=== PATIENT | female | born 1975 | race Caucasian/White ===

== ENCOUNTER 2016-12-03 10:58 | Emergency (ER) | payer OTHER ==
[~2016-12-03] VITALS: Wt 56.5 kg
[~2016-12-03 10:58] MED LIST: GLUC100015 PO; MULT-236 PO
[2016-12-03] MEDS ORDERED: SOD CHLORIDE 0.9% 1,000 ML IV STA (12:02)
[2016-12-03] MEDS: morphine 4 MG/ML VIAL IV STA ×2 (12:27→12:32)
[2016-12-03] MEDS: ONDANSETRON 4 MG INJ IV STA ×2 (12:27→12:32)
[2016-12-03 13:01] LABS: BASOPHILS % 0.7 % (0.0-2.0); EOSINOPHILS # 0.1 10^3/ul (0.0-0.5); EOSINOPHILS % 1.7 % (0.0-7.0); HEMATOCRIT 44.2 % (37.0-47.0); HEMOGLOBIN 15.1 g/dl (12.0-16.0); LYMPHOCYTES % 26.8 % (15.0-51.0); MEAN CORPUSCULAR HEMOGLOBIN 32.4 pg (29.0-33.0); MEAN CORPUSCULAR HGB CONC 34.1 g/dl (32.0-37.0); MEAN CORPUSCULAR VOLUME 94.9 fl (82.0-101.0); MEAN PLATELET VOLUME 9.1 fl (7.4-10.4); MONOCYTE # 0.4 10^3/ul (0.3-0.9); MONOCYTES % 11.3 % (0.0-11.0); NEUTROPHIL # 2.3 10^3/ul (1.6-7.5); NEUTROPHILS % 59.5 % (39.0-77.0); PLATELET COUNT 195 10^3/UL (140-440); RED BLOOD COUNT 4.66 10^6/ul (4.20-5.40); RED CELL DISTRIBUTION WIDTH 12.3 % (11.5-14.5); UNCORRECTED WBC 3.9 10^3/ul (4.8-10.8); WHITE BLOOD COUNT 3.9 10^3/ul (4.8-10.8)
[2016-12-03 13:02] LABS: ALBUMIN 4.6 g/dl (3.3-4.9); CONDITION 1
[2016-12-03 13:05] LABS: ALBUMIN/GLOBULIN RATIO 1.27; BILIRUBIN,INDIRECT 0.3 mg/dl (0-1.1); BILIRUBIN,TOTAL 0.3 mg/dl (0.2-1.3); CREATININE 0.58 mg/dl (0.44-1.00); TOTAL PROTEIN 8.2 g/dl (6.1-8.1)
[2016-12-03 13:06] LABS: CALCIUM 9.3 mg/dl (8.4-10.2)
[2016-12-03 13:10] LABS: ADD UMIC YES; URINE BILIRUBIN (Dip) NEGATIVE (NEGATIVE); URINE BLOOD (Dip) TRACE (NEGATIVE); URINE COLOR LT. YELLOW (YELLOW); URINE GLUCOSE (Dip) NEGATIVE (NEGATIVE); URINE KETONES (Dip) NEGATIVE (NEGATIVE); URINE LEUKOCYTE ESTERASE (Dip) NEGATIVE (NEGATIVE); URINE NITRITE (Dip) NEGATIVE (NEGATIVE); URINE TOTAL PROTEIN (Dip) NEGATIVE (NEGATIVE); URINE UROBILINOGEN (Dip) 0.2 E.U./dL (0.1-1.0)
--- NOTE | 2016-12-03 13:14 | RADRPT ---
PROCEDURE: CT Abdomen and Pelvis without contrast CLINICAL INDICATION: Abdominal pain TECHNIQUE: Transaxial images were obtained through the abdomen and pelvis on a multi-slice scanner without the intravenous contrast administration. No oral contrast had previously been given. Sagit kris and coronal re-formations were subsequently reconstructed. One or more of the following dose reduction techniques were used: - Automated exposure control. - Adjustment of the mA and/or kV according to patient size. - Use of iterative reconstruction technique. Radiation dose: CTDIvol = 5.66 mGy; DLP = 319.1 a mGy-cm. COMPARISON: No prior studies are available for comparison. FINDINGS: Lung bases: The visualized lung bases appear unremarkable. Liver: Normal in size and in attenuation. There is no focal lesion. Gallbladder: The wall is not thickened. No radiopaque stones are identified. Bile ducts: The intra and extrahepatic bile ducts are normal in caliber. Pancreas: Appears normal with no mass or inflammation evident. Spleen: Normal in size with no focal lesion. Adrenals: Normal with no mass identified. Kidneys, ureters and bladder: The kidneys are normal in size and there is no mass, pathological calc ification, or hydronephrosis evident. There is no perinephric stranding. The ureters are normal in c aliber and no ureteroliths are identified. The bladder appears unremarkable. Phleboliths are seen in the pelvis. Reproductive organs: Unremarkable. Stomach and bowel: The bowel appears unremarkable with no evidence of bowel obstruction or inflammat ion. The stomach appears unremarkable. Appendix: A normal-appearing vermiform appendix is evident. Peritoneum: No free intraperitoneal fluid or air is identified. Aorta: Normal in caliber with no aneurysmal dilatation. IVC: Unremarkable. Lymph nodes: No pathologically enlarged nodes are identified. Osseous structures: The osseous elements appear intact. IMPRESSION: Unremarkable CT scan of the abdomen and pelvis without contrast. Physician Dinesh Date Time Electronically viewed and signed by Physician Dinesh on 12/03/2016 13:14 /
--- NOTE | 2016-12-03 13:19 | RADRPT ---
PROCEDURE: US Pelvis Non-OB CLINICAL INDICATION: Pelvic pain TECHNIQUE: Images were taken during real time trans pelvic and endovaginal interrogation. Color-fl ow and Doppler interrogation of the ovaries was performed. COMPARISON: None FINDINGS: Uterus: appears mildly prominent in size measuring measuring 10.0 cm in sagittal diameter and 6.0 x 5.9 cm in cross diameter. The endometrial stripe measures 1.5 cm in total AP diameter small Nabothi an cysts are seen within the cervix. Ovaries: The right ovary measures 1-0.7 x 2.1 x 1.6 cm and appears unremarkable. The left ovary measures 2.6 x 1.9 x 1.7 cm and appears unremarkable. Each ovary demonstrates vascular flow on Doppler. Adnexa: No adnexal mass is identified. Free intraperitoneal fluid: None visualized. IMPRESSION: 1. Mildly prominent and the uterus with a thickened endometrial stripe measuring 1.5 cm in total AP diameter. A few small Nabothian cysts are seen in the cervix. 2. Normal ovaries with vascular flow demonstrated in each. 3. No adnexal mass or free fluid is identified. Physician Dinesh Date Time Electronically viewed and signed by Physician Dinesh on 12/03/2016 13:18 /
[2016-12-03 13:33] LABS: URINE RBCS 0-2 /HPF (0)
[2016-12-03] MEDS ORDERED: ACET500C5 PO (13:45)
[2016-12-03 14:03] VITALS: BP 109/69; PULSE 78; RESP 18
--- NOTE | 2016-12-03 14:04 | ERD ---
ER Documentation Chief Complaint Date/Time DATE: 12/03/16 TIME: 14:00 Chief Complaint LEFT LOWER ABD PAIN, ONSET THIS AM, NO N/V/D HPI Patient is a 41-year-old female who presents to the ED with left lower quadrant pain and left pelvic pain since yesterday. She states that the pain came on suddenly, comes and goes and has not been constant. She denies fever or chills. She denies radiation of pain. She denies nausea, vomiting or diarrhea. She states that her last bowel movement was this morning. She also complains of dysuria. No urgency or frequency or hematuria. No bloody stools or black tarry stools. No headache or dizziness. No leg pain or swelling. No chest pain, shortness of breath or difficulty breathing. ROS All systems reviewed and are negative except as per history of present illness. Medications Home Meds Active Scripts Acetaminophen* (Tylophen*) 500 Mg Capsule, 1 CAP PO Q6H Y for PAIN AND OR ELEVATED TEMP, #20 CAP Prov:SCOTT LUTZ PA-C 12/03/16 Reported Medications Glucosamine Sulfate 2KCL (GLUCOSAMINE) 1,000 Mg Tablet, 1000 MG PO DAILY 04/22/14 Multivitamins (Multi-Day Vitamin) 1 Tab Tablet, 1 TAB PO DAILY 04/22/14 Allergies Allergies: Coded Allergies: No Known Drug Allergy (Verified Allergy, Unknown, 03/26/12) PMhx/Soc Medical and Surgical Hx: pt denies Medical Hx History of Surgery: Yes (2009 excicion mass right breast) Anesthesia Reaction: No Hx Neurological Disorder: No Hx Respiratory Disorders: No Hx Cardiac Disorders: No Hx Psychiatric Problems: No Hx Miscellaneous Medical Probl: No Hx Alcohol Use: No Hx Substance Use: No Hx Tobacco Use: No Smoking Status: Never smoker FmHx Family History: No coronary disease, No diabetes, No other Physical Exam Vitals Vital Signs Date Time Temp Pulse Resp B/P Pulse Ox O2 Delivery O2 Flow Rate FiO2 12/03/16 14:03 18 98 Room Air 12/03/16 11:08 96.8 61 17 101/63 97 Physical Exam GENERAL: Well-developed, well-nourished female. Appears in no acute distress. HEAD: Normocephalic, atraumatic. EYES: Pupils are equally reactive bilaterally. EOMs grossly intact. No conjunctival erythema. ENT: Moist mucous membranes. No uvula deviation. No kissing tonsils. No exudates. NECK: Supple. No lymphadenopathy or thyromegaly. No meningismus. negative kernig. negative brudinski. LUNG: Clear to auscultation bilaterally. No rhonchi, wheezing, rales or coarse breath sounds. HEART: Regular rate and rhythm. No murmurs, rubs or gallops. ABDOMEN: No scars, ecchymosis or rashes noted. Soft, and nondistended. Positive bowel sounds in all four quadrants. No rebound tenderness, no guarding. (-) McBurneys point tenderness. No CVA tenderness. tender in llq and tender in left pelvic. SKIN: Normal color. Warm and dry. No rashes or lesions. Capillary refill < 2 seconds Result Diagram: 12/03/16 1200 12/03/16 1200 Results 24 hrs Laboratory Tests Test 12/03/16 12:00 12/03/16 12:10 Alanine Aminotransferase (ALT/SGPT) 18IU/L Albumin 4.6g/dl Albumin/Globulin Ratio 1.27 Alkaline Phosphatase 62IU/L Anion Gap 16 Aspartate Amino Transf (AST/SGOT) 23IU/L Basophils # 0.010^3/ul Basophils % 0.7% Blood Urea Nitrogen 11mg/dl Calcium Level 9.3mg/dl Carbon Dioxide Level 27mmol/L Chloride Level 102mmol/L Creatinine 0.58mg/dl Direct Bilirubin 0.00mg/dl Eosinophils # 0.110^3/ul Eosinophils % 1.7% Globulin 3.60g/dl Glucose Level 85mg/dl Hematocrit 44.2% Hemoglobin 15.1g/dl Indirect Bilirubin 0.3mg/dl Lipase 59U/L Lymphocytes # 1.010^3/ul Lymphocytes % 26.8% Mean Corpuscular Hemoglobin 32.4pg Mean Corpuscular Hemoglobin Concent 34.1g/dl Mean Corpuscular Volume 94.9fl Mean Platelet Volume 9.1fl Monocytes # 0.410^3/ul Monocytes % 11.3% Neutrophils # 2.310^3/ul Neutrophils % 59.5% Nucleated Red Blood Cells # 0.010^3/ul Nucleated Red Blood Cells % 0.0/100WBC Platelet Count 54685^3/UL Potassium Level 4.0mmol/L Red Blood Count 4.6610^6/ul Red Cell Distribution Width 12.3% Sodium Level 141mmol/L Total Bilirubin 0.3mg/dl Total Protein 8.2g/dl White Blood Count 3.910^3/ul Urine Bilirubin NEGATIVE Urine Clarity CLEAR Urine Color LT. YELLOW Urine Epithelial Cells FEW Urine Glucose NEGATIVE% Urine Hemoglobin TRACE Urine Ketones NEGATIVE Urine Leukocyte Esterase NEGATIVE Urine Microscopic RBC 0-2/HPF Urine Microscopic WBC 2-5/HPF Urine Nitrite NEGATIVE Urine Specific Ponder <=1.005 Urine Total Protein NEGATIVE Urine Urobilinogen 0.2 E.U./dL Urine pH 5.5 Current Medications Medications (Trade) Dose Ordered Sig/Jaida Route PRN Reason Start Time Stop Time Status Last Admin Dose Admin Sodium Chloride (NS) 1,000 ml @ 1,000 mls/hr Q1H STAT IV 12/03/16 12:02 12/03/16 13:01 DC 12/03/16 12:28 Morphine Sulfate (morphine) 4 mg ONCE STAT IV 12/03/16 12:02 12/03/16 12:05 DC Ondansetron HCl (Zofran Inj) 4 mg ONCE STAT IV 12/03/16 12:02 12/03/16 12:05 DC Procedures/MDM ER COURSE: I kept the patient and/or family informed of laboratory and diagnostic imaging results throughout the emergency room course. EKG, MONITORS, & DIAGNOSTIC IMAGING: [place] [id number] Radiology Main Line: [phone] DIAGNOSTIC IMAGING REPORT Patient: SABINA LION : 1975 Age: 41 Sex: F MR #: [id number] DOS: 12/03/16 1202 Ordering MD: SCOTT LUTZ PA-C Location: [facility] Room/Bed: PROCEDURE: CT Abdomen and Pelvis without contrast CLINICAL INDICATION: Abdominal pain TECHNIQUE: Transaxial images were obtained through the abdomen and pelvis on a multi-slice scanner without the intravenous contrast administration. No oral contrast had previously been given. Sagittal and coronal re-formations were subsequently reconstructed. One or more of the following dose reduction techniques were used: - Automated exposure control. - Adjustment of the mA and/or kV according to patient size. - Use of iterative reconstruction technique. Radiation dose: CTDIvol = 5.66 mGy; DLP = 319.1 a mGy-cm. COMPARISON: No prior studies are available for comparison. FINDINGS: Lung bases: The visualized lung bases appear unremarkable. Liver: Normal in size and in attenuation. There is no focal lesion. Gallbladder: The wall is not thickened. No radiopaque stones are identified. Bile ducts: The intra and extrahepatic bile ducts are normal in caliber. Pancreas: Appears normal with no mass or inflammation evident. Spleen: Normal in size with no focal lesion. Adrenals: Normal with no mass identified. Kidneys, ureters and bladder: The kidneys are normal in size and there is no mass, pathological calcification, or hydronephrosis evident. There is no perinephric stranding. The ureters are normal in caliber and no ureteroliths are identified. The bladder appears unremarkable. Phleboliths are seen in the pelvis. Reproductive organs: Unremarkable. Stomach and bowel: The bowel appears unremarkable with no evidence of bowel obstruction or inflammation. The stomach appears unremarkable. Appendix: A normal-appearing vermiform appendix is evident. Peritoneum: No free intraperitoneal fluid or air is identified. Aorta: Normal in caliber with no aneurysmal dilatation. IVC: Unremarkable. Lymph nodes: No pathologically enlarged nodes are identified. Osseous structures: The osseous elements appear intact. IMPRESSION: Unremarkable CT scan of the abdomen and pelvis without contrast. Physician Dinesh Date Time Electronically viewed and signed by Physician Dinesh on 12/03/2016 13:14 RH/ CC: SCOTT LUTZ PA-C [place] [address] Radiology Main Line: [phone] DIAGNOSTIC IMAGING REPORT Patient: SABINA LION : 1975 Age: 41 Sex: F MR #: [id number] DOS: 12/03/16 0000 Ordering MD: SCOTT LUTZ PA-C Location: [facility] Room/Bed: PROCEDURE: US Pelvis Non-OB CLINICAL INDICATION: Pelvic pain TECHNIQUE: Images were taken during real time trans pelvic and endovaginal interrogation. Color-flow and Doppler interrogation of the ovaries was performed. COMPARISON: None FINDINGS: Uterus: appears mildly prominent in size measuring measuring 10.0 cm in sagittal diameter and 6.0 x 5.9 cm in cross diameter. The endometrial stripe measures 1.5 cm in total AP diameter small Nabothian cysts are seen within the cervix. Ovaries: The right ovary measures 1-0.7 x 2.1 x 1.6 cm and appears unremarkable. The left ovary measures 2.6 x 1.9 x 1.7 cm and appears unremarkable. Each ovary demonstrates vascular flow on Doppler. Adnexa: No adnexal mass is identified. Free intraperitoneal fluid: None visualized. IMPRESSION: 1. Mildly prominent and the uterus with a thickened endometrial stripe measuring 1.5 cm in total AP diameter. A few small Nabothian cysts are seen in the cervix. 2. Normal ovaries with vascular flow demonstrated in each. 3. No adnexal mass or free fluid is identified. Physician Dinesh Date Time Electronically viewed and signed by Physician Dinesh on 12/03/2016 13:18 RH/ CC: SCOTT LUTZ PA-C MEDICATIONS: IV fluids, morphine, Zofran. Told medication well with no adverse reaction. Seen improvement in symptoms. LAB INTERPRETATION: CBC showed no evidence of systemic infection or severe anemia. CMP showed no evidence of electrolyte abnormalities, severe acidosis, alkalosis, renal failure , or liver disease. Lipase showed no evidence of acute pancreatitis. UA showed no evidence of leukocytes, nitrites or hematuria. Urine test was negative. MEDICAL DECISION MAKING: This is a 41-year-old female who presents with abdominal pain x 1 day. Vital signs were reviewed. Patient is afebrile. Patient is not hypoxic. Patient is not toxic or ill-appearing. Patient has abdominal pain of unknown etiology. Low suspicion for ACS, AAA, perforated ulcer, bowel obstruction, cholecystitis, choledocholithiasis, cholangitis, pancreatitis, hepatic abscess, appendicitis, diverticulitis, gastroenteritis, hepatitis, peptic ulcer disease, HELLP syndrome. Patient is feeling much better after medication and treatment in the ED. With no complaints. DISCHARGE: At this time, patient is stable for discharge and outpatient management with no new complaints during the ER course. Patient was sent home with Tylenol and to follow-up with her energy trader regarding her ultrasound results and her primary care doctor. Labs and imaging study reports given to patient.. Patient will be discharged home with instructions to recheck for new or worsening symptoms such as fever, nausea, weakness, LOC and to follow up with primary care in the next 1-2 days. Patient was advised to return to the ER for any new or worsening symptoms. Plan was discussed and patient and/or family understands and agrees. Home instructions were given. Departure Diagnosis: Primary Impression: Abdominal pain Abdominal location: left lower quadrant Qualified Code: R10.32 - Left lower quadrant pain Condition: Stable Patient Instructions: Abdominal Pain Referrals: AMPARO NANCE (PCP) Additional Instructions: Call your primary care doctor TOMORROW for an appointment during the next 1-2 days.See the doctor sooner or return here if your condition worsens before your appointment time. SCOTT LUTZ PA-C Dec 03, 2016 14:04
== END 2016-12-03 14:28 | disposition home or self-care (01) ==
LOC: FTE 10:58
DX: R10.32 Left lower quadrant pain (principal)
CPT/HCPCS: 36415; 74176; 76830; 76856; 80053; 81001; 83690; 85025; J2405; J7030; Z7502; 81003; J2270

== ENCOUNTER 2017-06-25 20:22 | Emergency (ER) | payer OTHER ==
[~2017-06-25] VITALS: Ht 162.6 cm; Wt 52.5 kg
[2017-06-25 20:58] VITALS: Ht 162.6 cm; Wt 52.5 kg
--- NOTE | 2017-06-25 22:55 | ERD ---
ER Documentation Chief Complaint Date/Time DATE: 06/25/17 TIME: 22:52 Chief Complaint C/O NECK PAIN, LT SD HEAD PRESSURE THAT STARTED TODAY. HPI 41-year-old female department for complaints of neck pain and pain in the left side of the head radiating to the left orbital area that started today. She is complaining of neck and pelvic pain succession scale, as was upon movement. Patient has history of degenerative disc disease of the cervical spine, was recommended to have physical therapy which she has not done, patient took ibuprofen for pain with much relief. Patient also complains of muscle spasms of affected area. Presents complaining of left-sided headache, throbbing pain, 6/10 scale, radiates to the left back of the head to the left facial area. Patient denies any numbness or tingling. Patient denies any nausea vomiting. Patient denies any head injury or neck injury. ROS All systems reviewed and are negative except as per history of present illness. Medications Home Meds Active Scripts Amoxicillin* (Amoxicillin*) 500 Mg Cap, 500 MG PO TID for 7 Days, CAP Prov:EUSEBIO CROCKER NP 06/25/17 Ibuprofen* (Motrin*) 600 Mg Tab, 600 MG PO Q6H Y for PAIN AND OR ELEVATED TEMP, #30 TAB Prov:EUSEBIO CROCKER NP 06/25/17 Cyclobenzaprine Hcl* (Cyclobenzaprine Hcl*) 10 Mg Tablet, 10 MG PO TID, #15 TAB Prov:EUSEBIO CROCKER NP 06/25/17 Acetamin/Butalbital/Caffeine* (Fioricet*) [id number] Tab, 1 TAB PO Q6H Y for PAIN, #30 TAB Prov:EUSEBIO CROCKER NP 06/25/17 Reported Medications [none] Unknown Strength No Conflict Check 06/25/17 Allergies Allergies: Coded Allergies: No Known Drug Allergy (Verified Allergy, Unknown, 06/25/17) codeine (Unverified Adverse Reaction, Unknown, N/V, 06/05/17) PMhx/Soc History of Surgery: Yes (c-sectionx2, right breast mass excision x2,) Anesthesia Reaction: Yes (N/V) Hx Neurological Disorder: No Hx Respiratory Disorders: No Hx Cardiac Disorders: No Hx Psychiatric Problems: No Hx Miscellaneous Medical Probl: No Hx Alcohol Use: No (social drinker) Hx Substance Use: No Hx Tobacco Use: No Smoking Status: Never smoker FmHx Family History: No coronary disease, No diabetes, No other Physical Exam Vitals Vital Signs Date Time Temp Pulse Resp B/P Pulse Ox O2 Delivery O2 Flow Rate FiO2 06/25/17 20:58 98.7 85 18 129/77 100 Physical Exam GENERAL: The patient is well developed and appropriate for usual state of health, in no apparent distress. CHEST: Clear to auscultation bilaterally. There are no rales, wheezes or rhonchi. HEART: Regular rate and rhythm. No murmurs, clicks, rubs or gallops. No S3 or S4. ABDOMEN: Soft, nontender and nondistended. Good bowel sounds. No rebound or guarding. No gross peritonitis. No gross organomegaly or masses. No Childress sign or McBurney point tenderness. BACK: No midline or flank tenderness. Spasms noted in the left paraspinal aspect of the cervical spine, able to do full range of motion without any restriction. EXTREMITIES: Equal pulses bilaterally. There is no peripheral clubbing, cyanosis or edema. No focal swelling or erythema. Full range of motion. Grossly neurovascularly intact. NEURO: Alert and oriented. Cranial nerves 2-12 intact. Motor strength in all 4 extremities with 5/5 strength. Sensation grossly intact. Normal speech and gait. - Romberg sign sign. Negative pronator drift. SKIN: There is no apparent rash or petechia. The skin is warm and dry. HEMATOLOGIC AND LYMPHATIC: There is no evidence of excessive bruising or lymphedema. No gross cervical, axillary, or inguinal lymphadenopathy. Results 24 hrs PROCEDURE: CT Brain without. CLINICAL INDICATION: Headache. TECHNIQUE: A CT of the brain was performed on multidetector high-resolution CT scanner utilizing axial sections from the skull base through the vertex without contrast. The scan was reviewed in soft tissue brain and high frequency resolution bone algorithm windows. Images were reviewed on a high- resolution PACS workstation. One or more the following does reduction techniques were utilized: Automated exposure control, adjustment of the mA/ or kV according to patient's size, or use of iterative reconstruction technique. The exam CTDI = 44.46 mGy and the DLP = 720.23 mGy-cm. COMPARISON: None available. FINDINGS: The ventricles and sulci are age-appropriate. There is no intracranial hemorrhage, mass effect or midline shift. No abnormal intra-axial or extra- axial fluid collections are seen. The matthews/white matter differentiation is preserved. No acute skull abnormality is noted. The visualized paranasal sinuses demonstrate mild mucosal thickening with small fluid level in the right sphenoid sinus. The mastoid air cells are essentially clear. IMPRESSION: 1. No acute intracranial hemorrhage, transcortical infarction or mass effect. 2. Mild mucosal thickening with small fluid level in the right sphenoid sinus, correlate for acute sinusitis. RPTAT: HFN .Clarice Urrutia MD, Date Time Electronically viewed and signed by .Clarice Urrutia MD, MD on 06/25/2017 23: 30 .N/ CC: EUSEBIO CROCKER HISTORIC SITES REGISTRAR PROCEDURE: CT cervical spine without contrast CLINICAL INDICATION: Trauma. Neck pain. TECHNIQUE: CT scan of the cervical spine was performed on a multidetector high -resolution CT scanner. No IV contrast was administered. Coronal and sagittal reformatted images were obtained from the axial source images. Images were reviewed on a high-resolution PACS workstation. One or more the following does reduction techniques were utilized: Automated exposure control, adjustment of the mA/ or kV according to patient's size, or use of iterative reconstruction technique. Exam CTDI = 12.71 mGy and the DLP = 252.5 mGy-cm. COMPARISON: None available. FINDINGS: There is straightening of the alignment of the cervical spine with loss of the normal cervical lordosis. There is 2 mm anterolisthesis at C4-C5. No acute fracture or dislocation is seen. The vertebral body heights are preserved. Posterior disc bulges at C4-C5 and C5-C6 contribute to mild spinal canal narrowing. No significant spinal canal or foraminal stenosis is noted. No mass , hematoma, or other soft tissue abnormality is seen. IMPRESSION: 1. Straightening of normal cervical lordosis. 2 mm anterolisthesis at C4-C5. 2. No acute cervical spine fracture. 3. Posterior disc bulges at C4-C5 and C5-C6 contribute to mild spinal canal narrowing. RPTAT: HFN .Clarice Urrutia MD, MD Date Time Electronically viewed and signed by .Clarice Urrutia MD, MD on 06/25/2017 23: 34 Procedures/MDM Medical Decision Making: Patient symptoms are consistent with cluster headache, possible tension headache, also has an incidental finding for acute sinusitis and will be treated. There is low suspicion for neurological emergencies at this time since patients neurologic exam is normal. Patient did not have any altered level consciousness, vomiting, changes in balance or memory and did not have any head injury. Patients CT scan of the head does not show any neurological emergencies at this time. Neck pain most likely is consistent with neck strain, also cervical radiculopathy. There is degenerative disc disease noted. low Suspicion for meningitis, patient does not have any fever. Rx: Fioricet, Amoxicillin, Flexeril, Ibuprofen Dispostion: Home. Stable Disclaimer: Inadvertent spelling and grammatical errors are likely due to EHR/ dictation software use and do not reflect on the overall quality of patient care. Also, please note that the electronic time recorded on this note does not necessarily reflect the actual time of the patient encounter. Departure Diagnosis: Primary Impression: Neck pain Additional Impressions: Head ache Headache type: cluster Headache chronicity pattern: unspecified pattern Intractability: not intractable Qualified Code: G44.009 - Cluster headache, not intractable, unspecified chronicity pattern Sinusitis Sinusitis location: maxillary Chronicity: acute Recurrence: not specified as recurrent Qualified Code: J01.00 - Acute maxillary sinusitis, recurrence not specified Degenerative cervical disc Condition: Stable Patient Instructions: Acute Sinusitis, Degenerative Disk Disease, Radiculopathy , Cervical, Self-Care for Headaches EUSEBIO CROCKER NP Jun 25, 2017 22:55
--- NOTE | 2017-06-25 23:31 | RADRPT ---
PROCEDURE: CT Brain without. CLINICAL INDICATION: Headache. TECHNIQUE: A CT of the brain was performed on multidetector high-resolution CT scanner utilizing a xial sections from the skull base through the vertex without contrast. The scan was reviewed in sof t tissue brain and high frequency resolution bone algorithm windows. Images were reviewed on a high -resolution PACS workstation. One or more the following does reduction techniques were utilized: Aut omated exposure control, adjustment of the mA/ or kV according to patient's size, or use of iterativ e reconstruction technique. The exam CTDI = 44.46 mGy and the DLP = 720.23 mGy-cm. COMPARISON: None available. FINDINGS: The ventricles and sulci are age-appropriate. There is no intracranial hemorrhage, mass effect or mi dline shift. No abnormal intra-axial or extra-axial fluid collections are seen. The matthews/white rupinder er differentiation is preserved. No acute skull abnormality is noted. The visualized paranasal sinus es demonstrate mild mucosal thickening with small fluid level in the right sphenoid sinus. The masto id air cells are essentially clear. IMPRESSION: 1. No acute intracranial hemorrhage, transcortical infarction or mass effect. 2. Mild mucosal thickening with small fluid level in the right sphenoid sinus, correlate for acute sinusitis. RPTAT: HFN .Clarice Urrutia MD, MD Date Time Electronically viewed and signed by .Clarice Urrutia MD, MD on 06/25/2017 23:30 .N/
--- NOTE | 2017-06-25 23:34 | RADRPT ---
PROCEDURE: CT cervical spine without contrast CLINICAL INDICATION: Trauma. Neck pain. TECHNIQUE: CT scan of the cervical spine [facility] No [facility] was administered. Coronal and sagittal reformatted images were obtained from th e axial source images. Images were reviewed on a high-resolution PACS workstation. One or more the f ollowing does reduction techniques were utilized: Automated exposure control, adjustment of the mA/ or kV according to patient's size, or use of iterative reconstruction technique. Exam CTDI = 12.71 m Gy and the DLP = 252.5 mGy-cm. COMPARISON: None available. FINDINGS: There is straightening of the alignment of the cervical spine with loss of the normal cervical lordo sis. There is 2 mm anterolisthesis at C4-C5. No acute fracture or dislocation is seen. The verteb ral body heights are preserved. Posterior disc bulges at C4-C5 and C5-C6 contribute to mild spinal c anal narrowing. No significant spinal canal or foraminal stenosis is noted. No mass, hematoma, or o ther soft tissue abnormality is seen. IMPRESSION: 1. Straightening of normal cervical lordosis. 2 mm anterolisthesis at C4-C5. 2. No acute cervical spine fracture. 3. Posterior disc bulges at C4-C5 and C5-C6 contribute to mild spinal canal narrowing. RPTAT: HFN .Clarice Urrutia MD, MD Date Time Electronically viewed and signed by .Clarice Urrutia MD, MD on 06/25/2017 23:34 .N/
[2017-06-25] MEDS ORDERED: FIORICET PO (23:50)
[2017-06-25] MEDS ORDERED: IBUP-1542 PO (23:50)
[2017-06-25] MEDS ORDERED: CYCL-319 PO (23:50)
[2017-06-25] MEDS ORDERED: AMO500 PO (23:50)
[2017-06-26 00:07] VITALS: BP 122/61; PULSE 71; RESP 20; TEMP 98.7
== END 2017-06-26 00:08 | disposition home or self-care (01) ==
LOC: FTE 20:22
DX: M54.2 Cervicalgia (principal); G44.009 Cluster headache syndrome, unspecified, not intractable; J01.00 Acute maxillary sinusitis, unspecified; M50.30 Other cervical disc degeneration, unspecified cervical region
CPT/HCPCS: 70450; 72125; Z7502

== ENCOUNTER 2019-06-12 16:56 | Emergency (ER) | payer OTHER ==
[~2019-06-12] VITALS: Ht 162.6 cm; Wt 52.3 kg
[~2019-06-12 16:56] MED LIST changes: +AMOX500C2 PO; +CYCL10TA7 PO; +FIORICET PO; -GLUC100015 PO; +IBUP-1542 PO; -MULT-236 PO
[2019-06-12 17:27] VITALS: BP 122/56; PULSE 78; RESP 18; Ht 162.6 cm; Wt 52.3 kg
[2019-06-12] MEDS ORDERED: LORAZEPAM 1 MG TAB PO ONE (19:30)
== END 2019-06-12 20:48 | disposition home or self-care (01) ==
LOC: FTE 16:56
DX: R07.89 Other chest pain (principal)
CPT/HCPCS: 36415; 71045; 80048; 84484; 85025; 93005; Z7502